=== PATIENT | female | born 1970 | race Two or more races ===

== ENCOUNTER 2020-09-28 14:22 | Outpatient (CLI) | payer OTHER | END 2020-09-28 15:20 | disposition home or self-care (01) | LOC: OFIC 805 14:22 | PROVIDERS: ATTEND Otolaryngology Otology & Neurotology | DX: H90.3 Sensorineural hearing loss, bilateral (principal); H69.83 Other specified disorders of Eustachian tube, bilateral ==

== ENCOUNTER → 2022-05-26 | Emergency (ER) | payer OTHER ==
[~2022-05-26] VITALS: Ht 152.4 cm; Wt 57.2 kg
== END | disposition home or self-care (01) ==
LOC: ER 09:09
DX: U07.1 COVID-19 (principal); Z88.6 Allergy status to analgesic agent; Z91.040 Latex allergy status